=== PATIENT | male | born 1975 | race Caucasian/White ===

== ENCOUNTER 2022-02-01 11:47 | Emergency (ER) | payer OTHER ==
[~2022-02-01] VITALS: Ht 180.3 cm; Wt 70.3 kg
[2022-02-01] MEDS ORDERED: IBUPROFEN 600 MG TAB PO STA (12:21)
[2022-02-01] MEDS ORDERED: TETANUS/DIPHTHERIA TOX ADULT 0.5 ML SYR IM ONE (12:30)
[2022-02-01] MEDS ORDERED: LIDOCAINE 1% 10 ML MULTIDOSE VIAL IJ ONE (12:30)
[2022-02-01] MEDS ORDERED: ACETAMINOPHEN-1 EAC4 PO (13:38)
[2022-02-01] MEDS ORDERED: ULTRAM 50MG50 MG PO (13:42)
== END 2022-02-01 14:02 | disposition home or self-care (01) ==
LOC: ER 11:58
DX: S01.01XA Laceration without foreign body of scalp, initial encounter (principal); S52.592A Other fractures of lower end of left radius, initial encounter for closed fracture; S52.612A Displaced fracture of left ulna styloid process, initial encounter for closed fracture; R51.9 Headache, unspecified; M54.2 Cervicalgia; W17.89XA Other fall from one level to another, initial encounter; Y99.0 Civilian activity done for income or pay; F17.210 Nicotine dependence, cigarettes, uncomplicated
CPT/HCPCS: 70450; 72125; 90714; 99284